=== PATIENT | female | born 1990 | race Two or more races ===

== ENCOUNTER 2017-01-05 19:01 | Emergency (ER) | payer SELFPAY ==
[~2017-01-05] VITALS: Ht 165.1 cm; Wt 68.0 kg
[2017-01-05 19:11] VITALS: BP 119/70
--- NOTE | 2017-01-05 22:16 | NUR ---
TO ER BED 8
--- NOTE | 2017-01-05 22:30 | NUR ---
PT IS 26Y/F BIB FAMILY VAG BLEED x 40 MINUTES AGO.
--- NOTE | 2017-01-05 22:50 | NUR ---
Patient being evaluated by DR. RAMOS at bedside.
[2017-01-05 23:08] VITALS: BP 114/73
--- NOTE | 2017-01-05 23:09 | NUR ---
Patient discharged with v/s stable BY DR. RAMOS. Written and verbal after care instructions given and explained. Patient verbalized understanding. Ambulatory with steady gait. All questions addressed prior to discharge. Advised to follow up with PMD.
== END 2017-01-05 23:10 | disposition home or self-care (01) ==
LOC: MED 19:01
DX: O20.9 Hemorrhage in early pregnancy, unspecified (principal); Z3A.08 8 weeks gestation of pregnancy
CPT/HCPCS: 36415; 76817; 80048; 81001; 81025; 84702; 85025; 86900; 86901; 99285; Q0092